=== PATIENT | male | born 1950 | race Caucasian/White ===

== ENCOUNTER 2021-11-26 08:51 | Outpatient (REF) | payer OTHER, SELFPAY ==
[2021-11-26 11:16] LABS: Hematocrit 44.3 % (42.0-52.0); Hemoglobin 14.8 g/dl (14.0-18.0); Mean Corpuscular HGB Conc 33.4 g/dl (31.0-36.0); Mean Corpuscular Hemoglobin 30.8 pg (27.0-33.0); Mean Corpuscular Volume 92.1 fL (80.0-98.0); Mean Platelet Volume 9.5 fL (9.4-12.4); Platelet Count 289 X10*3/uL (160-400); Red Blood Count 4.81 X10*6/uL (4.60-5.80); Red Cell Distribution Width 11.9 % (11.0-16.0); White Blood Count 8.7 X10*3/uL (4.8-10.8)
[2021-11-26 11:29] LABS: Alanine Aminotransferase 18 U/L (0-40); Albumin Level 4.2 g/dL (3.5-5.0); Alkaline Phosphatase 85 U/L (39-117); Anion Gap 11 (12-20); Aspartate Amino Transferase 18 U/L (5-37); Bilirubin Total 2.5 mg/dL (0.0-1.0); Blood Urea Nitrogen 16 mg/dL (9-16); Calcium 9.5 mg/dL (8.4-10.2); Carbon Dioxide 28 mmol/L (22-29); Chloride 104 mmol/L (96-108); Cholesterol 213 mg/dL; Estimated Glomerular Filt Rate > 60; Glucose Fasting 94 mg/dL (60-99); HDL Cholesterol 44 mg/dL; LDL Cholesterol Calculated 136 mg/dl; Potassium 4.3 mmol/L (3.3-5.1); Sodium 139 mmol/L (135-145); Total Protein 6.9 g/dL (6.5-8.0); Triglycerides 166 mg/dL
[2021-11-26 12:12] LABS: Vitamin D 25-OH Total 20.7 ng/mL (>30)
[2021-11-26 12:15] LABS: Folate 12.8 ng/mL (> or = 4.0); Vitamin B12 565 pg/mL (200-900)
== END 2021-11-26 08:52 | disposition home or self-care (01) ==
LOC: HO.MANLDS 08:51
PROVIDERS: PCP Internal Medicine; Visit Provider Internal Medicine
DX: I10 Essential (primary) hypertension (principal); R97.20 Elevated prostate specific antigen [PSA]; K57.92 Diverticulitis of intestine, part unspecified, without perforation or abscess without bleeding; Z12.5 Encounter for screening for malignant neoplasm of prostate
CPT/HCPCS: 36415; 80053; 80061; 82306; 82607; 82746; 84153; 85027

== ENCOUNTER 2022-11-09 07:59 | Outpatient (REF) | payer OTHER, SELFPAY ==
[2022-11-09 11:01] LABS: MANUAL DIFF FLAG NO
[2022-11-09 11:51] LABS: Basophils Absolute Auto 0.1 X10*3/uL (0.0-0.2); Basophils Percent Auto 0.7 % (0-2); Eosinophils Absolute Auto 0.4 X10*3/uL (0.0-0.4); Eosinophils Percent Auto 4.3 % (0-4); Hematocrit 40.2 % (42.0-52.0); Hemoglobin 13.1 g/dl (14.0-18.0); Imm Gran Abs Auto 0.02 X10*3/uL (0.00-0.03); Imm Gran Pct Auto 0.2 % (0.0-0.4); Lymphocytes Absolute Auto 2.1 X10*3/uL (1.2-4.9); Lymphocytes Percent Auto 23.7 % (20-40); Mean Corpuscular HGB Conc 32.6 g/dl (31.0-36.0); Mean Corpuscular Hemoglobin 29.4 pg (27.0-33.0); Mean Corpuscular Volume 90.1 fL (80.0-98.0); Mean Platelet Volume 9.4 fL (9.4-12.4); Monocytes Absolute Auto 1.1 X10*3/uL (0.1-1.2); Monocytes Percent Auto 12.2 % (2-11); Neutrophils Absolute Auto 5.1 x10*3/uL (2.0-8.3); Neutrophils Percent Auto 58.9 % (45-73); Platelet Count 337 X10*3/uL (160-400); Red Blood Count 4.46 X10*6/uL (4.60-5.80); Red Cell Distribution Width 12.2 % (11.0-16.0); White Blood Count 8.7 X10*3/uL (4.8-10.8)
[2022-11-09 12:21] LABS: Alanine Aminotransferase 20 U/L (0-40); Albumin Level 3.8 g/dL (3.5-5.0); Alkaline Phosphatase 132 U/L (39-117); Anion Gap 13 (12-20); Aspartate Amino Transferase 21 U/L (5-37); Bilirubin Total 1.8 mg/dL (0.0-1.0); Blood Urea Nitrogen 19 mg/dL (9-16); Calcium 8.9 mg/dL (8.4-10.2); Carbon Dioxide 27 mmol/L (22-29); Chloride 106 mmol/L (96-108); Cholesterol 126 mg/dL; Estimated Glomerular Filt Rate > 60; Glucose Random 99 mg/dL (60-115); HDL Cholesterol 46 mg/dL; LDL Cholesterol Calculated 67 mg/dl; Prostate Specific Antigen 7.34 ng/mL (<0.05-4.0); Sodium 142 mmol/L (135-145); Total Protein 6.3 g/dL (6.5-8.0); Triglycerides 66 mg/dL; Vitamin D 25-OH Total 26.1 ng/mL (>30)
== END 2022-11-09 08:00 | disposition home or self-care (01) ==
LOC: HO.MANLDS 07:59
PROVIDERS: Visit Provider Internal Medicine
DX: I10 Essential (primary) hypertension (principal); E55.9 Vitamin D deficiency, unspecified; Z12.5 Encounter for screening for malignant neoplasm of prostate
CPT/HCPCS: 36415; 80053; 80061; 82306; 84153; 85025

== ENCOUNTER 2024-11-27 07:34 | Outpatient (REF) | payer OTHER, SELFPAY ==
--- OUTSIDE RECORDS SUMMARY | 2024-11-27 07:37 | XMS_ITS | Clinical Summary ---
Author Organization [facility] Facility Address [address] [address] Care Team Providers Care Commissions Specialist Name Role Phone Unavailable Primary Care Provider Unavailabl e Social History Tobacco Use Types Packs/Day Years Used Date Smoking Tobacco: Never Assessed Sex and Gender Information Value Date Recorded Sex Assigned at Not on file Legal Sex Male 10:45 AM EST Gender Identity Not on file Sexual Orientation Not on file Plan of Treatment Health Maintenance Due Date Last Done Comments Colorectal Cancer Screening: Annual FOBT 2001 Colorectal Cancer Screening: Colonoscopy 2001 Colorectal Cancer Screening: Sigmoidoscopy 2001 Pneumococcal Vaccine: 65+ Ye ars (1 of 1 - PCV) 2017 Influenza Vaccine (#1) 2024 Hepatitis B Vaccine Aged Out No longe r eligible based on patient's age to complete this topic Insurance [employer] [place] [id number] [place] [id number]
[2024-11-27 13:12] LABS: MANUAL DIFF FLAG NO
[2024-11-27 13:32] LABS: Basophils Absolute Auto 0.1 X10*3/uL (0.0-0.2); Basophils Percent Auto 0.9 % (0-2); Eosinophils Absolute Auto 0.3 X10*3/uL (0.0-0.4); Eosinophils Percent Auto 4.1 % (0-4); Hematocrit 42.1 % (42.0-52.0); Hemoglobin 13.8 g/dl (14.0-18.0); Imm Gran Abs Auto 0.02 X10*3/uL (0.00-0.03); Imm Gran Pct Auto 0.2 % (0.0-0.4); Lymphocytes Absolute Auto 2.2 X10*3/uL (1.2-4.9); Lymphocytes Percent Auto 26.9 % (20-40); Mean Corpuscular HGB Conc 32.8 g/dl (31.0-36.0); Mean Corpuscular Hemoglobin 28.8 pg (27.0-33.0); Mean Corpuscular Volume 87.9 fL (80.0-98.0); Mean Platelet Volume 9.8 fL (9.4-12.4); Monocytes Percent Auto 11.8 % (2-11); Neutrophils Absolute Auto 4.6 x10*3/uL (2.0-8.3); Neutrophils Percent Auto 56.1 % (45-73); Platelet Count 276 X10*3/uL (160-400); Red Blood Count 4.79 X10*6/uL (4.60-5.80); Red Cell Distribution Width 14.2 % (11.0-16.0); White Blood Count 8.2 X10*3/uL (4.8-10.8)
[2024-11-27 13:42] LABS: Alanine Aminotransferase 20 U/L (0-40); Albumin Level 4.2 g/dL (3.5-5.0); Alkaline Phosphatase 129 U/L (39-117); Anion Gap 12 (12-20); Aspartate Amino Transferase 40 U/L (5-37); Bilirubin Total 2.5 mg/dL (0.0-1.0); Blood Urea Nitrogen 19 mg/dL (9-16); Calcium 9.3 mg/dL (8.4-10.2); Carbon Dioxide 25 mmol/L (22-29); Chloride 107 mmol/L (96-108); Cholesterol 120 mg/dL (<200); Estimated Glomerular Filt Rate > 60; Glucose Random 90 mg/dL (60-115); HDL Cholesterol 48 mg/dL (>40); LDL Cholesterol Calculated 55 mg/dL (<100); Sodium 140 mmol/L (135-145); Total Protein 7.3 g/dL (6.5-8.0); Triglycerides 88 mg/dL (<150)
[2024-11-27 13:58] LABS: Prostate Specific Antigen 6.58 ng/mL (<0.05-4.0)
== END 2024-11-27 07:35 | disposition home or self-care (01) ==
LOC: HO.MANLDS 07:34
PROVIDERS: Visit Provider Internal Medicine
DX: Z12.5 Encounter for screening for malignant neoplasm of prostate (principal); I10 Essential (primary) hypertension; E55.9 Vitamin D deficiency, unspecified
CPT/HCPCS: 36415; 80053; 80061; 82652; 84153; 85025

== ENCOUNTER 2025-07-09 07:40 | Outpatient (REF) | payer OTHER, SELFPAY ==
--- OUTSIDE RECORDS SUMMARY | 2025-07-09 07:42 | XMS_ITS | Clinical Summary ---
Author Organization [facility] Address [address] [place] [address] [place] [address] Phone Care Team Providers Care Collection Clerk Name Role Phone Isael Hartmann DO Unavailable AutumnIsael clemons DO Primary Care Provider [phone] Allergies No known active allergies Medications lisinopril (PRINIVIL,ZESTRI L) 40 MG tablet Take 40 mg by mouth daily. Active atorvastatin (LIPITOR) 40 MG tablet Take 40 mg by mouth daily. Active aspirin 81 MG EC tablet Take 81 mg by mouth daily. Active labetaloL (TRANDATE) 100 MG tablet Take 200 mg by mouth 3 (three) times a day. Active metoprolol tartrate (LOPRESSOR) 37.5 mg Tab tablet Take 37.5 mg by mouth 2 (two) times a day. 03/29/2025 Active amLODIPine (NORVASC) 10 MG tablet Take 1 tablet by mouth every morning. 03/28/2025 Active Encounters Date Type Department Care Team Description 05/08/2025 6:10 PM EDT - 05/08/2025 10:46 PM EDT Emergency [facility] [address] [place] [address] Shaheed Contreras MD Discharge Disposition: Home or Self Care from Last 3 Months Social History Tobacco Use Types Packs/Day Years Used Date Smoking Tobacco: Never Smokeless Tobacco: Never Tobacco Cessation:Counseling Given: Not Answered Alcohol Use Standard Drinks/Week Comments Not Currently 0 (1 standard drink = 0.6 oz pur e alcohol) Education Answer Date Recorded Are you interested in more education? Not on vicente e 12/23/2022 Are you concerned about learning? Not on file 12/23/2022 No 12/23/2022 No 12/23/2022 Food Answer Date Recorded Within the past 6 months we worried whether our food would run out before we got money to buy more. Never True 05/08/2025 Within the past 6 months the food we bought just didn't last and we didn't have enough money to get more. Never True Residential Stability Answer Date Recor ded What is your housing situation today? I have dunia sing 05/08/2025 How many times have you move d in the past 12 months? Zero (I did not move) 05/08/2025 Paying for Meds Answer Date Recorded Do you have trouble paying for medicines? No 05/08/2025 Paying Utility Bills Answer Date Record ed Do you have trouble paying your heating or elect ricity bill? No 05/08/2025 Transportation Answer Date Recorded Has the lack of transportati on kept you from medical appointments or from getting medications? No 05/08/2025 Digital Access Answer Date Recorded No 05/08/2025 Yes 05/08/2025 Do you have reliable internet access at home? Ye s 05/08/2025 Do you have a device (e.g., phone, tablet, computer) with a working camera? Yes 05/08/2025 Intimate Partner Violence Answer Date R ecorded Are you denied basic needs s uch as food, clothing, or medical care? No 05/08/2025 In the past 12 months have y ou been in a relationship with a person who hurts, threatens, or tries to control you? No 05/08/2025 Are you denied basic needs s uch as food, clothing, or medical care? No 05/08/2025 In the past 12 months have y ou been in a relationship with a person who hurts, threatens, or tries to control you? No 05/08/2025 Sex and Gender Information Value Date Recorded Sex Assigned at Male 05/08/2025 6:30 PM EDT Legal Sex Male 10:00 PM EDT Gender Identity Male 05/08/2025 6:30 PM EDT Sexual Orientation Not on file Last Filed Vital Signs Vital Sign Reading Time Taken Comments Blood Pressure 147/80 05/08/2025 8:55 PM EDT Pulse 68 05/08/2025 8:55 PM EDT Temperature 36.6 C (97.9 F) 05/08/2025 6:15 PM EDT Respiratory Rate 16 05/08/2025 8:55 PM EDT Oxygen Saturation 98% 05/08/2025 8:55 PM EDT Inhaled Oxygen Concentration - - Weight 101.1 kg (222 lb 12.8 oz) 05/08/2025 6:30 PM EDT Height 182.9 cm (6') 05/08/2025 6:15 PM EDT Body Mass Index 30.22 05/08/2025 6:15 PM EDT Plan of Treatment Health Maintenance Due Date Last Done Comments Adult Td,Tdap Booster 1952 LIPID PANEL 1952 DEPRESSION SCREENING 1964 HEPATITIS C SCREENING 1970 COLOGUARD 1997 COLONOSCOPY 1997 COLORECTAL CANCER SCREENING 1997 FIT TEST 1997 FOBT 1997 SIGMOIDOSCOPY 1997 VIRTUAL COLONOSCOPY 1997 PNEUMOCOCCAL VACCINES (50+ years) (1 of 1 - PCV) 2002 ZOSTER VACCINES (1 of 2) 2002 CREATININE LEVEL 07/31/2024 07/31/2023 POTASSIUM LEVEL 07/31/2024 07/31/2023 INFLUENZA VACCINE (#1) 2025 2, 05/13/2019, 06/14/2018, Additional history exists COVID-19 VACCINE ( - 2024- season) 2025 11/22/2020, 11/01/2020 RSV VACCINE (1 - 1-dose 75+ series) 2027 SMOKING STATUS SCREENING (Once After 26 Yrs) Completed 05/08/2025 HEPATITIS A VACCINES Aged Out No long er eligible based on patient's age to complete this topic HIB VACCINES Aged Out No longer eligi ble based on patient's age to complete this topic IPV VACCINES Aged Out No longer eligi ble based on patient's age to complete this topic MENINGOCOCCAL VACCINES (ACWY) Aged Out No longer eligible based on patient's age to complete this topic MENINGOCOCCAL VACCINES (B) Aged Out N o longer eligible based on patient's age to complete this topic Medical Devices Not on file Procedures Procedure Name Priority Date/Time Associated Diagnosis Comments ORTHOPEDIC INJURY TREATMENT Routine 05/09/2025 12:43 AM EDT XR HIP 2-3 VW RIGHT Routine 05/08/2025 9 :10 PM EDT SEDATION Routine 05/08/2025 8:52 PM EDT XR HIP 2 VW RIGHT PLUS PELVIS Routine 05/08/2025 7:16 PM EDT BASIC METABOLIC PANEL (BMP) STAT 07/31/2023 3:54 AM EST from Last 3 Months or Most Recently Relevant to Health Maintenance Results * ORTHOPEDIC INJURY TREATMENT (05/09/2025 12:43 AM EDT) Narrative Shaheed Contreras MD - 05/09/2025 12:43 AM EDT Shaheed Contreras MD 05/09/2025 12:59 AM Orthopedic Injury Treatment/Splint/Cast Application Date/Time: 05/09/2025 12:43 AM Performed by: Karin Manzo PA-C Authorized by: Shaheed Contreras MD Injury Injury location: Hip Location details: Right hip Injury type: Dislocation Dislocation type: posterior Spontaneous?: Yes Prosthesis?: Yes Pre-procedure assessment Neurovascular status: Neurovascularly intact Distal perfusion: normal Neurological function: normal Range of motion: reduced Local anesthesia used?: No Procedure details Manipulation performed?: Yes Reduction method: Whistler maneuver Reduction successful?: Yes Confirmation: Reduction confirmed by x-ray Immobilization: Brace (knee immobilizer) Post-procedure assessment Neurovascular status: Neurovascularly intact Distal perfusion: normal Neurological function: normal Range of motion: improved Patient tolerance: Patient tolerated the procedure well with no immediate complications us Shaheed Contreras MD PROCEDURE/MINOR S URGICAL ORDERABLES Final Result * XR HIP 2-3 VW RIGHT (05/08/2025 9:10 PM EDT) Anatomical Region Laterality Modality Hip Right Computed Radiogr aphy 05/08/2025 10:1 7 PM EDT Impressions 05/08/2025 10:37 PM EDT Interval reduction of previous right hip prosthesis dislocation, now with appropriate alignment. No displaced fracture. ATTESTATION: Clara Judd as teaching physician, have reviewed the images for this case and if necessary edited the report originally created by Karin Pinedo. Narrative 05/08/2025 10:37 PM EDT XR HIP 2-3 VW RIGHT Referring clinician's provided indication for this examination in [facility]: Pain COMPARISON: XR HIP 2 VW RIGHT PLUS PELVIS 19:08:55.000 FINDINGS: Status post total hip arthroplasty with interval reduction of previous dislocation, now with appropriate alignment of the femoral and acetabular components. No clarice-hardware lucency or fracture. Procedure Note Clara Vance MD - 05/08/2025 XR HIP 2-3 VW RIGHT Referring clinician's provided indication for this examination in [facility]:Pain COMPARISON: XR HIP 2 VW RIGHT PLUS PELVIS 19:08:55.000 FINDINGS: Status post total hip arthroplasty with interval reduction of previousdislocation, now with appropriate alignment of the femoral and acetabularcomponents. No clarice-hardware lucency or fracture. IMPRESSION: Interval reduction of previous right hip prosthesis dislocation, now withappropriate alignment. No displaced fracture. ATTESTATION: Clara Judd as teaching physician, have reviewed the imagesfor this case and if necessary edited the report originally created byKarin Pinedo. us Karin Manzo PA-C IMG XR PELVIS Final R esult * Sedation (05/08/2025 8:52 PM EDT) Narrative Shaheed Contreras MD - 05/08/2025 8:52 PM EDT Shaheed Contreras MD 05/08/2025 8:54 PM Sedation Date/Time: 05/08/2025 8:52 PM Performed by: Shaheed Contreras MD Authorized by: Shaheed Contreras MD Emergent situation Consent obtained: Yes Time out: Immediately prior to the procedure a time-out was called Indications: Procedure performed: Dislocation reduction Pre-sedation assessment: Pre-sedation evaluation completed; I examined and reassessed this patient immediately prior to administration of sedation Procedure details (see MAR for exact dosages): I was present for the length of the entire sedation timeframe from first injection and continuously throughout for 26 minutes Intended level of sedation: Deep Preoxygenation: Nasal cannula Sedation: Propofol Analgesia: Hydromorphone Intra-procedure monitoring: Blood pressure monitoring, library paraprofessional, continuous pulse oximetry, continuous capnometry, frequent LOC assessments and frequent vital sign checks Intra-procedure events: hypoxia Intra-procedure management: Airway repositioning and BVM ventilation Post-procedure details: Attendance: constant attendance by certified staff until patient recovered Recovery: patient returned to pre-procedure baseline for mental status and respiratory function Post-sedation assessments completed and reviewed: airway patency, cardiovascular function, hydration status, mental status, nausea/vomiting, pain level and respiratory function Patient tolerance: Tolerated well, no immediate complications Shaheed Contreras MD NURSING COMMUNICA TION ORDERABLES - ONCE Final Result * XR HIP 2 VW RIGHT PLUS PELVIS (05/08/2025 7:16 PM EDT) Anatomical Region Laterality Modality Hip, Pelvis Computed Radiogr aphy 05/08/2025 7:40 PM EDT Impressions 05/08/2025 7:43 PM EDT Superior dislocation of the right hip prosthesis. No periprosthetic fracture. Should be reassessed on post reduction radiographs. Narrative 05/08/2025 7:43 PM EDT XR HIP 2 VW RIGHT PLUS PELVIS Referring clinician's provided indication for this examination in Epic: S/P Fall COMPARISON: XR HIP 1 VW RIGHT FINDINGS: Pelvis: Pelvic ring is intact. SI joints and pubic symphysis are maintained. Degenerative changes of the visualized spine. Total left hip prosthesis with no displaced fracture or dislocation. Right hip: Right hip prosthesis with superior dislocation of the femoral component. No periprosthetic fracture. Should be reassessed on post reduction radiographs. Procedure Note Hyun Hooker MD - 05/08/2025 XR HIP 2 VW RIGHT PLUS PELVIS Referring clinician's provided indication for this examination in Epic:S/P Fall COMPARISON: XR HIP 1 VW RIGHT FINDINGS: Pelvis: Pelvic ring is intact. SI joints and pubic symphysis aremaintained. Degenerative changes of the visualized spine. Total left hipprosthesis with no displaced fracture or dislocation. Right hip: Right hip prosthesis with superior dislocation of the femoralcomponent. No periprosthetic fracture. Should be reassessed on postreduction radiographs. IMPRESSION: Superior dislocation of the right hip prosthesis. No periprostheticfracture. Should be reassessed on post reduction radiographs. us Randy Dixon MD IMG XR PELVIS Final Resul t * (ABNORMAL) Basic metabolic panel (07/31/2023 3:54 AM EST) SODIUM 140 133 - 146 mmol/L [facility] CHLORIDE 103 96 - 108 mmol/L [facility] POTASSIUM 4.0 3.3 - 5.1 mmol/L [facility] CO2 20(L) 21 - 35 mmol/L [facility] BUN 21(H) 6 - 19 mg/dL [facility] CREATININE 1.00 0.5 - 1.5 mg/dL [facility] GLUCOSE 152(H) 70 - 99 mg/dL [facility] CALCIUM 9.0 8.4 - 10.3 mg/dL [facility] EGFR 80 >59 mL/min/1.7 3m2 [facility] Comment:Estimated glomerular filtration rate calculated using the CKD-EPI refit equation. ANION GAP 21(H) 10 - 20 mmol/L [facility] Blood 07/31/2023 3:54 AM EST 07/31/2023 4:00 AM EST us Jalil Menjivar MD LAB BLOOD BKR ORDERABLES F inal Result [address] [address] from Last 3 Months or Most Recently Relevant to Health Maintenance Insurance [employer] PLUS PPO [employer] PLUS PPO [employer] PPO [employer] PPO [employer] PPO [employer]US PPO [employer]US PPO [employer] GIC PLUS PPO [employer] PLUS PPO Care Teams Collection Clerk Relationship Specialty Start Date End Date Isael Hartmann DO [address] [place] [address] PCP - General Internal Medicine 05/08/25 Isael Hartmann DO [email or web address] Historical LMR Provider 06/18/17 Additional Source Comments The information contained in this document represents components of the legal health record. It is not the complete legal health record.[facility]
--- OUTSIDE RECORDS SUMMARY | 2025-07-09 07:42 | XMS_ITS | Encounter Summary ---
Author Organization [facility] Address [address] [place] [address] Phone Care Team Providers Care Briar Cutter Name Role Phone Isael Hartmann DO Unavailable Isael Hartmann DO Primary Care Provider [phone] Isael Hartmann DO Primary Care Provider [phone] Reason for Referral * Outpatient Procedure - Closed Specialty Diagnoses / Procedures Referred By Re wetzel Referred To Contact Diagnoses ALMAGUER (dyspnea on exertion) Procedures Stress Test Exercise Isael Hartmann DO Phone: tel: fax: [email or web address] Referral ID Status Reason Start Date Expiration Date Visits Re quested Visits Authorized [id number] Closed 11/17/2022 1 1 Encounter Details Date Type Department Care Team (Late st Contact Info) Description 11/17/2022 Transcribe Orders Virtual Department [address] [place] [address] Isael Hartmann DO [address] [facility] [address] [place] [address] [email or web address] ALMAGUER (dyspnea on exertion) (Primary Dx) Social History Tobacco Use Types Packs/Day Years Used Date Smoking Tobacco: Never Assessed Sex and Gender Information Value Date Recorded Sex Assigned at Male 05/08/2025 6:30 PM EDT Legal Sex Male 10:00 PM EDT Gender Identity Male 05/08/2025 6:30 PM EDT Sexual Orientation Not on file documented as of this encounter Plan of Treatment Not on file documented as of this encounter Results * Stress Test Exercise (11/22/2022 9:12 AM EDT) Max BP Systolic 170 mmHg [facility] Max BP Diastolic 78 mmHg [facility] Max HR 150 BPM [facility] Resting HR 83 BPM [facility] Resting BP Systolic 130 mmHg [facility] Resting BP Diastolic 82 mmHg [facility] Peak METS 10.1 METS [facility] Peak HR 148 BPM [facility] Peak BP Systolic 154 mmHg [facility] Peak BP Diastolic 70 mmHg [facility] Anatomical Region Laterality Modality Heart Other 11/22/2022 8:34 AM EDT 11/22/2022 9:11 AM EDT Narrative 11/22/2022 9:39 AM EDT Response to Stress The patient exercised for minutes seconds, achieving 10.1 METS at peak exercise. Baseline blood pressure was 130/82 mmHg, and baseline heart rate was 83 bpm. Peak blood pressure was 154/70 mmHg. The patient achieved a peak heart rate of 148 bpm, which is% of their maximum predicted heart rate[place] [address]. REPORT - Pt exercised for 8:29 min on a BETY protocol achieving 10.1 METS. Test terminated due to fatigue. Baseline resting HR was 82. Max heart rate achieved was 150 (100% MPHR). 1. EKG - Baseline EKG showed normal sinus rhythm. No ischemic EKG changes noted with exercise. 2. SYMPTOMS - no chest pain reported 3. EXERCISE PHYSIOLOGY - High functional capacity for age. Normal BP response to exercise. 4. ARRHYTHMIAS - few PVCs Conclusion - normal stress test with no ischemic EKG changes noted and no chest pain reported. Sharri Simeon STATE FARM AGENT TEAM MEMBER with Dr. Rincon . us Isael A Bigda DO CV STRESS ORDERABLES Final Resul t documented in this encounter Visit Diagnoses Diagnosis ALMAGUER (dyspnea on exertion)- Primary Other dyspnea and respiratory abnormality ALMAGUER (dyspnea on exertion) Other dyspnea and respiratory abnormality documented in this encounter Additional Health Concerns Infection Onset Date Last Indicated Resolved Time CoV-Risk 07/31/2023 07/31/2023 08/11/2023 1:21 AM EST documented as of this encounter Care Teams Briar Cutter Relationship Specialty Start Date End Date Isael Hartmann DO [email or web address] PCP - General 08/31/17 05/07/25 Isael Hartmann DO [address] [place] [address] PCP - General Internal Medicine 05/08/25 Isael Hartmann DO Historical LMR Provider 06/18/17 documented as of this encounter Additional Source Comments The information contained in this document represents components of the legal health record. It is not the complete legal health record.[facility]
--- OUTSIDE RECORDS SUMMARY | 2025-07-09 07:42 | XMS_ITS | Encounter Summary ---
Author Organization [facility] Address [address] [place], [place] [address] [place] [address] Phone Care Team Providers Care Roundhouse Worker Name Role Phone Isael Hartmann DO Unavailable Annette Le MD Unavailable [phone] Quang Mejia CNP Unavailable [phone] Isael Hartmann DO Primary Care Provider [phone] Isael Hartmann DO Primary Care Provider [phone] Encounter Details Date Type Department Care Team (Late st Contact Info) Description 07/04/2018 Ancillary Orders Virtual Department [address] [place] [address] Isael Hartmann DO [address] [facility] [place] [address] [place] [address] [email or web address] Encounter for screening for cardiovascular disorders Social History Tobacco Use Types Packs/Day Years [...] documented as of this encounter Results * US Abdominal Aortic Screening (07/18/2018 9:14 AM EST) Anatomical Region Laterality Modality Abdomen Ultrasound 07/18/2018 9:40 AM EST Impressions 07/18/2018 9:43 AM EST 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 POS - [id number] Narrative 07/18/2018 9:43 AM EST COMPARISON: None FINDINGS: Aorta is diffusely ectatic measuring 2.7 x 2.8 cm in its proximal portion, 2.5 x 2.7 cm in its midportion, and 2.4 x 2.4 cm in its distal portion. No gross mural calcification or intraluminal thrombus identified. Right common iliac artery measures 1.3 cm and left common iliac 1.4 cm in diameter. Procedure Note Klarissa Ng MD - 07/18/2018 COMPARISON: None FINDINGS: Aorta is diffusely ectatic measuring 2.7 x 2.8 cm in its proximal portion,2.5 x 2.7 cm in its midportion, and 2.4 x 2.4 cm in its distal portion.No gross mural calcification or intraluminal thrombus identified. Rightcommon iliac artery measures 1.3 cm and left common iliac 1.4 cm indiameter. 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 POS - [id number] us Isael Hartmann DO IMG US ABDOMEN Final Result documented in this encounter Visit Diagnoses Diagnosis Encounter for screening for cardiovascular disorders Encounter for screening for cardiovascular disorders documented in this encounter Additional Health Concerns Infection Onset Date Last Indicated Resolved Time CoV-Risk 07/31/2023 07/31/2023 08/11/2023 1:21 AM EST documented as of this encounter Care Teams Roundhouse Worker Relationship Specialty Start Date End Date Isael Hartmann DO PCP - General 08/31/17 05/07/25 Isael Hartmann DO [address] [place] [address] PCP - General Internal Medicine 05/08/25 Isael Hartmann DO [email or web address] Historical LMR Provider 06/18/17 Annette Le MD [address] [address] Historical LMR Provider 06/18/17 Quang Mejia CNP [address] [address] Historical LMR Provider 06/18/17 09/04/21 documented as of this encounter Additional Source Comments The information contained in this document represents components of the legal health record. It is not the complete legal health record.[facility]
--- OUTSIDE RECORDS SUMMARY | 2025-07-09 07:42 | XMS_ITS | Encounter Summary ---
Author Organization [facility] Address [address] [place] [address] [place] [address] Phone Care Team Providers Care Graduate Teaching Associate Name Role Phone Shahbaz, Isael Baird DO Unavailable Bigda, Isael A DO Primary Care Provider [phone] Bigda, Isael A DO Primary Care Provider [phone] Encounter Details Date Type Department Care Team (Late st Contact Info) Description 07/31/2023 Procedure Pass [facility] Scan - [address] [address] Social History Tobacco Use Types Packs/Day Years Used Date Smoking Tobacco: Never Assessed Education Answer Date Recorded Are you interested in more education? Not on vicente e 12/23/2022 Are you concerned about learning? Not on file 12/23/2022 No 12/23/2022 No 12/23/2022 Digital Access Answer Date Recorded No 01/23/2023 No 01/23/2023 Reliable internet access at home? Not on file 01/23/2023 Device with a working camera? Not on file Sex and Gender Information Value Date Recorded Sex Assigned at Male 05/08/2025 6:30 PM EDT Legal Sex Male 10:00 PM EDT Gender Identity Male 05/08/2025 6:30 PM EDT Sexual Orientation Not on file documented as of this encounter Functional Status * Calculated C-SSRS Risk Score (Lifetime/Recent) Answer Date of Assessment Author No Risk Indicated 07/31/2023 3:22 AM Rosio Shannon RN * [place] Suicide Severity Rating Scale (Screener/Recent Self-Report) Question Answer Date of Assessment Author 1. Rabia to be (Past 1 Month) No 023 3:22 AM Rosio Anaya, KIMBERLY 2. Non-Specific Active Suici catrina Thoughts (Past 1 Month) No 07/31/2023 3:22 AM GUILLERMO Whitney Ma ra, RN 6. Suicidal Behavior (Lifetime) No 3 3:22 AM Rosio Anaya, KIMBERLY documented as of this encounter Plan of Treatment Not on file documented as of this encounter Visit Diagnoses Not on filedocumented in this encounter Additional Health Concerns Infection Onset Date Last Indicated Resolved Time CoV-Risk 07/31/2023 07/31/2023 08/11/2023 1:21 AM EST documented as of this encounter Care Teams Graduate Teaching Associate Relationship Specialty Start Date End Date Isael Hartmann DO [email or web address] PCP - General 08/31/17 05/07/25 Isael Hartmann DO [address] [place] [address] PCP - General Internal Medicine 05/08/25 Isael Hartmann DO Historical LMR Provider 06/18/17 documented as of this encounter Additional Source Comments The information contained in this document represents components of the legal health record. It is not the complete legal health record.[facility]
--- OUTSIDE RECORDS SUMMARY | 2025-07-09 07:42 | XMS_ITS | Encounter Summary ---
Author Organization [facility] Address [address] [place] [address] [place] [phone] Phone Care Team Providers Care Web Content Manager Name Role Phone Shahbaz, Isael Baird DO Unavailable Bigda, Isael A DO Primary Care Provider [phone] Bigda, Isael A DO Primary Care Provider [phone] Encounter Details Date Type Department Care Team (Late st Contact Info) Description 07/31/2023 Procedure Pass [facility], Ct Scan - [address] [address] Social History Tobacco Use Types Packs/Day Years [...] 07/31/2023 3:22 AM Rosio Shannon RN * [place] Suicide Severity Rating Scale (Screener/Recent Self-Report) Question Answer Date of Assessment Author 1. Rabia to be (Past 1 Month) No 023 3:22 AM Rosio Anaya, IKMBERLY 2. Non-Specific Active Suici catrina Thoughts (Past [...] documented as of this encounter Care Teams Web Content Manager Relationship Specialty Start Date End Date Isael Hartmann DO [email or web address] PCP - General 08/31/17 05/07/25 Isael Hartmann DO [address] [place] [id number] PCP - General Internal Medicine 05/08/25 Isael Hartmann DO Historical LMR Provider 06/18/17 documented as of this encounter Additional Source Comments The information contained in this document represents components of the legal health record. It is not the complete legal health record.[facility]
[2025-07-09 13:04] LABS: MANUAL DIFF FLAG NO
[2025-07-09 13:18] LABS: Hematocrit 41.5 % (42.0-52.0); Hemoglobin 14.0 g/dl (14.0-18.0); Imm Gran Abs Auto 0.03 X10*3/uL (0.00-0.03); Imm Gran Pct Auto 0.4 % (0.0-0.4); Lymphocytes Absolute Auto 1.9 X10*3/uL (1.2-4.9); Mean Corpuscular HGB Conc 33.7 g/dl (31.0-36.0); Mean Corpuscular Hemoglobin 30.8 pg (27.0-33.0); Mean Corpuscular Volume 91.2 fL (80.0-98.0); NRBC Abs Auto 0.000 X10*3/uL (0.0-0.012); NRBC Pct Auto 0.0 /100WBC (0.0-0.2); Platelet Count 235 X10*3/uL (160-400); Red Blood Count 4.55 X10*6/uL (4.60-5.80); White Blood Count 7.8 X10*3/uL (4.8-10.8)
[2025-07-09 13:40] LABS: Alanine Aminotransferase 21 U/L (0-40); Albumin Level 4.4 g/dL (3.5-5.0); Alkaline Phosphatase 112 U/L (39-117); Anion Gap 12 (12-20); Aspartate Amino Transferase 27 U/L (5-37); Blood Urea Nitrogen 23 mg/dL (9-16); Calcium 9.0 mg/dL (8.4-10.2); Carbon Dioxide 24 mmol/L (22-29); Chloride 109 mmol/L (96-108); Estimated Glomerular Filt Rate > 60; Potassium 4.1 mmol/L (3.3-5.1); Sodium 141 mmol/L (135-145); Total Protein 7.0 g/dL (6.5-8.0)
== END 2025-07-09 07:41 | disposition home or self-care (01) ==
LOC: HO.MANLDS 07:40
PROVIDERS: Visit Provider Internal Medicine
DX: I10 Essential (primary) hypertension (principal)
CPT/HCPCS: 36415; 80053; 85025